=== PATIENT | male | born 1975 | race Caucasian/White ===

== ENCOUNTER 2020-12-25 16:04 | Emergency (ER) | payer OTHER ==
[~2020-12-25] VITALS: Ht 162.6 cm; Wt 117.9 kg
[2020-12-25] MEDS ORDERED: PAXIL30 MG (16:30)
== END 2020-12-25 21:49 | disposition home or self-care (01) ==
LOC: ER 16:04
DX: K29.70 Gastritis, unspecified, without bleeding (principal); N39.0 Urinary tract infection, site not specified

== ENCOUNTER 2021-01-27 20:34 | Inpatient (IN) | payer OTHER ==
[~2021-01-27] VITALS: Ht 162.6 cm; Wt 112.0 kg
[~2021-01-27 20:34] MED LIST: PAXIL30 MG
--- NOTE | 2021-01-27 20:46 | NUR ---
SE RECIBE PTE ALERTA Y ORIENTADO X3,REFIERE TENER DOLOR ABDOMINAL ,DIARREAS.
--- NOTE | 2021-01-27 21:32 | NUR ---
EVALUA PTE. SE EDUCA A PTE SOBRE TX MEDICO. PTE REFIERE COMPRENDER. SE REALIZAN MUESTRAS DE LABORATORIO BAJO MEDIDAS ASEPTICAS. SE ADMINISTRAN MEDICAMENTOS J[facility]H [facility]ICA. PTE MANEJADO POR .
--- NOTE | 2021-01-27 23:56 | NUR ---
PACIENTE ALERTA Y ORIENTADO X3. SE ORIENTA SOBRE TX A RECIBIR Y REFIRIO ENTENDER. SE ADMINISTRO MEDICAMENTO ORDENADO POR MD. IV FLUID PATENTE Y LUIS DE EDEMA Y ERITEMA. SE MANTIENE BAJO OBSERVACION POR CAMBIOS SIGNIFICATIVOS EN TRUE CON BARANDAS ELEVADAS.
--- NOTE | 2021-01-28 04:36 | NUR ---
PACIENTE ALERTA Y ORIENTADO X3. MISS. SHANNON ORIENTA A PACIENTE SOBRE TX A RECIBIR Y REFIRIO ENTENDER. ADMINISTRA MEDICAMENTOS ORDENADOS POR MD. SE MANTIENE BAJO OBSERVACION POR CAMBIOS SIGNIFICATIVOS.
--- NOTE | 2021-01-28 07:09 | NUR ---
PACIENTE ES ORIENTADO EN SELWYN SU ESFERAS EN TRUE CON BUEN PATRON RESPIRATORIO. SE OBSERVA H/L PATENTE LUIS DE EDEMA Y ENROJECIMIENTO RECIBIENDO .9NSS @100ML/HR. PENDIENTE CONSULTA CON DR. CUNNINGHAM.
--- NOTE | 2021-01-28 12:44 | NUR ---
SE REALIZA JR DE MUESTRAS DE LABORATORIO, JOSH [facility] MEDICA, UTILIZANDO MEDIDAS ASEPTICAS. SE COLOCA CANULA NASAL.
[2021-02-02] MEDS ORDERED: CIPRO500 MG PO (16:39)
[2021-02-02] MEDS ORDERED: INTESTINEX680 M1 PO (16:40)
[2021-02-02] MEDS ORDERED: FLAGYL500MG PO (16:40)
[2021-02-02] MEDS ORDERED: PROTONIX40 MG PO (16:41)
== END 2021-02-02 20:47 | disposition home or self-care (01) | DRG 392 ==
LOC: ER 20:34 → MEDJ 01-28 11:37
PROVIDERS: ADMIT Internal Medicine; ATTEND Internal Medicine
DX: K52.9 Noninfective gastroenteritis and colitis, unspecified (principal); N17.8 Other acute kidney failure; E86.0 Dehydration; Z20.822 Contact with and (suspected) exposure to COVID-19; F41.8 Other specified anxiety disorders

== ENCOUNTER 2021-02-14 01:38 | Inpatient (IN) | payer OTHER ==
[~2021-02-14] VITALS: Ht 162.6 cm; Wt 103.4 kg
[~2021-02-14 01:38] MED LIST changes: +CIPRO500 MG PO; +FLAGYL500MG PO; +INTESTINEX680 M1 PO; +PROTONIX40 MG PO
--- NOTE | 2021-02-14 01:54 | NUR ---
SE RECIBE PTE ALERTA Y ORIENTADO POR SU, EN AMBULANCIA. PTE REFIERE DOLOR ABDOMINAL Y VOMITOS X6 DESDE EL 04/02/2021. PTE INDICA MICHAEL ESTADO HOSPITALIZADO POR COLITIS Y QUE FUE DADO DE MARIA ELENA EL MAIK 03/02/2021.
--- NOTE | 2021-02-14 02:02 | NUR ---
SE RECIBE PTE EN AMBULANCIA ALERTA Y ORIENTADO POR SU. PTE REFIERE PRESENTAR MOLESTIA EN TODO EL ABDOMEN Y VOMITOS X7 DESDE EL MAIK DE LETY A LAS 11:00PM APROXIMADAMENTE.
--- NOTE | 2021-02-14 02:40 | NUR ---
SE LE ORIENTA SOBRE TRATAMIENTO A SEGUIR, EL REFIERE ENTENDER. SE LE COLECTA MUESTRAS, SE CANALIZA Y SE ADMINISTRA MEDICAMENTO JOSH [facility]DEN MEDICA UTILIZANDO MEDIDAS ASEPTICAS. PENDIENTE, U/A Y YASIR X.
--- NOTE | 2021-02-14 07:35 | NUR ---
SE RECIBE PTE EN LA UNIDAD DE OBSERVACION EN EL CUBICULO #7 EN TRUE CON BARANDAS ELEVADA Y TIMBRE ACCESIBLE PTE ALERTA Y CONCIENTE POR 3 NO PRESETAN DOLOR AL MOMENTO, SE OSBERVA VENOPUNCION PATENTE Y LUIS DE EDEMA, PTE SE MANTIENE EN OBSERVACION Y BAJO TRATAMIENTO EN ESPERA LA KRISTI CUNNINGHAM. SE OBSERVA PTE CON TUBO NGT EN FOSA NASAL DERECHO CON SUSCCION INTERMITENTE.
--- NOTE | 2021-02-14 16:13 | NUR ---
PTE ALERTA Y ORIENTADO X3 EN TRUE CON BARANDAS ELEVADAS.SE RECIBE PTE CANALIZADO AREA LUIS DE EDEMA Y DE ENROJECIMIENTO. SE RECIBE PTE EN NPO, CON TNG INSERTADO EN NARE DERECHO A SUBCCION INTERMITENTE CON 400ML DE RESIDUAL GASTRICO. PTE EN ESPERA DE CONSULTA CON .
[2021-03-01] MEDS ORDERED: PERCOCET 5-3251 EACH PO (13:26)
[2021-03-01] MEDS ORDERED: AMOX-CLAV 875-1 EACH PO (13:26)
== END 2021-03-01 15:12 | disposition home or self-care (01) | DRG 330 ==
LOC: ER 01:38 → SURG 17:36 → SURH 17:36
PROVIDERS: ADMIT Surgery; ATTEND Surgery
PROC: 0DB80ZZ Excision of Small Intestine, Open Approach (ICD-10-PCS; principal; 2021-02-25 10:00)
DX: C17.8 Malignant neoplasm of overlapping sites of small intestine (principal); K56.690 Other partial intestinal obstruction; N17.8 Other acute kidney failure; E66.8 Other obesity; F41.9 Anxiety disorder, unspecified; E86.0 Dehydration; Z20.822 Contact with and (suspected) exposure to COVID-19